=== PATIENT | male | born 1995 | race Caucasian/White ===

== ENCOUNTER 2019-09-04 23:24 | Inpatient (IN) ==
[2019-09-04] MEDS ORDERED: LACTATED RINGERS 1,000 ML IV STA (23:28)
[2019-09-04] MEDS ORDERED: ONDANSETRON 4 MG/2 ML VIAL IV STA (23:28)
[2019-09-04] MEDS ORDERED: HYDROmorphone 2 MG/1 ML VIAL IV STA (23:28)
[2019-09-04 23:42] LABS: Basophils % 0.5 % (0.0-0.8); Eosinophils # 0.1 10*3/uL (0.0-0.87); Hematocrit 43.5 VOL% (42.0-52.0); Hemoglobin 14.7 GM/DL (14.0-18.0); Immature Granulocytes % 0.2 %; Immature Granulocytes Absolute 0.02 #; Lymphocytes # 2.4 10*3/uL (1.4-4.0); Lymphocytes % 28.9 % (21.2-54.2); Mean Corpuscular HGB Conc 33.8 GM/DL (32-36); Mean Corpuscular Volume 88.8 FL (87-102); Mean Platelet Volume 10.8 FL (9.6-12.0); Monocytes % 8.8 % (1.7-12.7); Neutrophils % 60.6 % (38.7-73.9); Platelet Count 246 T/CUMM (130-400); Red Cell Distribution Width 12.9 % (9.3-17.3); White Blood Count 8.3 T/CUMM (4-12)
[2019-09-04 23:50] LABS: INR 1.1; PT Patient Result 12.1 SECS (9.6-12.2); Partial Thromboplastin Time 23.3 SECS (20.8-36.0)
[2019-09-04] MEDS ORDERED: AMPICILLIN/SULBACTAM 3,000 MG in SODIUM CHLORIDE 0.9% 100 ML IV STA (23:55)
[2019-09-05 00:02] LABS: Alanine Aminotransferase 18 U/L (16-61); Albumin 4.7 G/DL (3.4-5.0); Alkaline Phosphatase 72 U/L (45-117); Amylase 30 U/L (25-115); Aspartate Amino Transferase 24 U/L (0-37); Blood Urea Nitrogen 8 MG/DL (7-18); Calcium 9.1 MG/DL (8.5-10.1); Estimated Glom Filtration Rate 87 ML/MIN; Glucose 115 MG/DL (74-106); Osmolality,Calculated 277.4 MOS/KG (273-304); Total Protein 7.7 G/DL (6.4-8.3)
[2019-09-05 00:28] LABS: Barbiturates Screen,Urine Negative (Negative); Benzodiazepines Screen,Urine Negative (Negative); Cannabinoid Screen,Urine Positive (Negative); Opiate Screen,Urine Negative (Negative); Phencyclidine Screen,Urine Negative (Negative)
[2019-09-05 00:31] LABS: Apearance,Urine CLEAR (Clear); Bilirubin,Urine Negative (Negative); Blood, Urine Negative (Negative); Glucose,Urine (UA) Negative (Negative); Granular Casts,Urine 9 /LPF (0-1); Hyaline Casts,Urine 9 /LPF (0-3); Ketones,Urine 5 mg/dL (Negative); Mucus,Urine Occasional /LPF (Occasional); Nitrite,Urine Negative (Negative); Protein,Urine 30 MG/DL; RBC,Urine 4 /HPF (0-4); Urine Color Yellow (Yellow); Urine Specific Gravity 1.026 (1.001-1.035); WBC,Urine 2 /HPF (0-6)
[2019-09-05] MEDS ORDERED: SODIUM CHLORIDE 0.9% 1,000 ML IV PRN (01:22)
[2019-09-05] MEDS ORDERED: ONDANSETRON 4 MG/2 ML VIAL IV PRN (01:25)
[2019-09-05] MEDS ORDERED: HYDROmorphone 2 MG/1 ML VIAL IV PRN (01:25)
[2019-09-05] MEDS ORDERED: KETAMINE 500 MG/10 ML VIAL ONE (01:28)
[2019-09-05] MEDS ORDERED: DESFLURANE 1 UNIT/15 MINUTE INH ONE (01:28)
[2019-09-05] MEDS ORDERED: LIDOCAINE 2% 5 ML VIAL ONE (01:28)
[2019-09-05] MEDS ORDERED: PROPOFOL 200 MG/20 ML VIAL IV ONE (01:28)
[2019-09-05] MEDS ORDERED: ROCURONIUM 100 MG/10 ML VIAL IV ONE (01:29)
[2019-09-05] MEDS ORDERED: GLYCOPYRROLATE 0.4 MG/2 ML VIAL ONE (01:29)
[2019-09-05] MEDS ORDERED: SUCCINYLCHOLINE 200 MG/10 ML VIAL ONE (01:29)
[2019-09-05] MEDS ORDERED: SODIUM CHLORIDE 0.9% 1,000 ML IV ONE (01:29)
[2019-09-05] MEDS ORDERED: PHENYLEPHRINE 1 MG/10 ML SYRINGE IV ONE (01:29)
[2019-09-05] MEDS ORDERED: NEOSTIGMINE 10 MG/10 ML VIAL ONE (01:29)
[2019-09-05] MEDS: LACTATED RINGERS 1,000 ML IV SCH ×3 (01:34→17:39)
[2019-09-05] MEDS: KETOROLAC 30 MG/1 ML VIAL IV SCH ×4 (01:52→23:01)
[2019-09-05] MEDS: HYDROmorphone 2 MG/1 ML VIAL IV PRN (05:35)
[2019-09-05 06:02] LABS: Basophils % 0.2 % (0.0-0.8); Eosinophils % 0.1 % (0.00-10.9); Hematocrit 37.9 VOL% (42.0-52.0); Hemoglobin 12.7 GM/DL (14.0-18.0); Immature Granulocytes % 0.2 %; Immature Granulocytes Absolute 0.02 #; Lymphocytes # 1.1 10*3/uL (1.4-4.0); Lymphocytes % 9.3 % (21.2-54.2); Mean Corpuscular HGB Conc 33.5 GM/DL (32-36); Mean Corpuscular Volume 91.3 FL (87-102); Mean Platelet Volume 10.8 FL (9.6-12.0); Monocytes % 8.5 % (1.7-12.7); Neutrophils % 81.7 % (38.7-73.9); Platelet Count 208 T/CUMM (130-400); Red Blood Count 4.15 MC/CUMM (3.8-5.5); Red Cell Distribution Width 12.9 % (9.3-17.3); White Blood Count 12.1 T/CUMM (4-12)
[2019-09-05 06:38] LABS: Band Neutrophils 6 % (0-10); Lymphocytes 9 % (20-55); Platelet Estimate Normal; Segmented Neutrophils 80 % (50-85); Total Cells Counted 100
[2019-09-05 06:39] LABS: Hypochromasia Slight
[2019-09-05] MEDS ORDERED: LACTATED RINGERS 1,000 ML IV ONE ×2 (07:03→09:42)
[2019-09-05] MEDS ORDERED: INFLUENZA VIRUS VACCINE 0.5 ML SYRINGE IM ONE (07:29)
[2019-09-05] MEDS: ENOXAPARIN 40 MG/0.4 ML SYRINGE SUBCUT SCH (23:01)
[2019-09-06] MEDS: KETOROLAC 30 MG/1 ML VIAL IV SCH ×4 (03:59→21:33)
[2019-09-06] MEDS: LACTATED RINGERS 1,000 ML IV SCH ×3 (04:00→17:30)
[2019-09-06] MEDS ORDERED: LACTATED RINGERS 1,000 ML IV ONE (07:33)
[2019-09-06 08:16] LABS: Basophils % 0.2 % (0.0-0.8); Eosinophils # 0.1 10*3/uL (0.0-0.87); Eosinophils % 0.7 % (0.00-10.9); Hematocrit 27.4 VOL% (42.0-52.0); Immature Granulocytes % 0.6 %; Immature Granulocytes Absolute 0.06 #; Lymphocytes # 1.1 10*3/uL (1.4-4.0); Lymphocytes % 10.5 % (21.2-54.2); Mean Corpuscular HGB Conc 33.2 GM/DL (32-36); Mean Corpuscular Volume 93.2 FL (87-102); Monocytes % 6.7 % (1.7-12.7); Neutrophils % 81.3 % (38.7-73.9); Red Cell Distribution Width 13.3 % (9.3-17.3); White Blood Count 10.7 T/CUMM (4-12)
[2019-09-06 08:26] LABS: Calcium 7.6 MG/DL (8.5-10.1); Osmolality,Calculated 278.5 MOS/KG (273-304)
[2019-09-06 08:47] LABS: Hemoglobin 9.1 GM/DL (14.0-18.0); Platelet Count 156 T/CUMM (130-400); Red Blood Count 2.94 MC/CUMM (3.8-5.5)
[2019-09-06 08:51] LABS: Band Neutrophils 3 % (0-10); Eosinophils 1 % (0-10); Lymphocytes 12 % (20-55); Segmented Neutrophils 79 % (50-85); Total Cells Counted 100
[2019-09-06 08:52] LABS: Hypochromasia 1+; Microcytosis Slight; Platelet Estimate Adequate
[2019-09-06] MEDS: HYDROmorphone 2 MG/1 ML VIAL IV PRN (15:46)
[2019-09-06] MEDS: ENOXAPARIN 40 MG/0.4 ML SYRINGE SUBCUT SCH (21:32)
[2019-09-07] MEDS: HYDROmorphone 2 MG/1 ML VIAL IV PRN (00:33)
[2019-09-07] MEDS: KETOROLAC 30 MG/1 ML VIAL IV SCH ×4 (02:49→19:54)
[2019-09-07 06:13] LABS: Basophils % 0.2 % (0.0-0.8); Eosinophils # 0.2 10*3/uL (0.0-0.87); Eosinophils % 2.1 % (0.00-10.9); Hematocrit 25.9 VOL% (42.0-52.0); Hemoglobin 8.6 GM/DL (14.0-18.0); Immature Granulocytes % 0.9 %; Immature Granulocytes Absolute 0.09 #; Lymphocytes # 1.3 10*3/uL (1.4-4.0); Lymphocytes % 13.6 % (21.2-54.2); Mean Corpuscular HGB Conc 33.2 GM/DL (32-36); Mean Corpuscular Volume 91.8 FL (87-102); Mean Platelet Volume 11.3 FL (9.6-12.0); Monocytes % 5.5 % (1.7-12.7); Neutrophils % 77.7 % (38.7-73.9); Platelet Count 158 T/CUMM (130-400); Red Blood Count 2.82 MC/CUMM (3.8-5.5); White Blood Count 9.7 T/CUMM (4-12)
[2019-09-07 06:36] LABS: Osmolality,Calculated 281.3 MOS/KG (273-304)
[2019-09-07 06:42] LABS: Hypochromasia 1+; Microcytosis 1+
[2019-09-07 06:43] LABS: Ovalocytes Slight
[2019-09-07 06:45] LABS: Platelet Estimate Adequate
[2019-09-07] MEDS: LACTATED RINGERS 1,000 ML IV SCH ×3 (12:38→22:12)
[2019-09-07] MEDS: cefOXitin 2,000 MG in SYRINGE 1 EACH IV SCH ×2 (15:30→18:17)
[2019-09-07] MEDS: ENOXAPARIN 40 MG/0.4 ML SYRINGE SUBCUT SCH (19:54)
[2019-09-08] MEDS: KETOROLAC 30 MG/1 ML VIAL IV SCH ×4 (01:19→20:42)
[2019-09-08] MEDS: HYDROmorphone 2 MG/1 ML VIAL IV PRN ×3 (04:38→20:39)
[2019-09-08] MEDS: LACTATED RINGERS 1,000 ML IV SCH ×4 (06:08→22:50)
[2019-09-08 06:13] LABS: Basophils % 0.1 % (0.0-0.8); Eosinophils # 0.2 10*3/uL (0.0-0.87); Eosinophils % 1.9 % (0.00-10.9); Hematocrit 25.2 VOL% (42.0-52.0); Hemoglobin 8.3 GM/DL (14.0-18.0); Immature Granulocytes % 0.6 %; Immature Granulocytes Absolute 0.06 #; Lymphocytes # 0.7 10*3/uL (1.4-4.0); Lymphocytes % 6.8 % (21.2-54.2); Mean Corpuscular HGB Conc 32.9 GM/DL (32-36); Mean Corpuscular Volume 91.3 FL (87-102); Mean Platelet Volume 10.6 FL (9.6-12.0); Monocytes % 6.6 % (1.7-12.7); Platelet Count 195 T/CUMM (130-400); Red Blood Count 2.76 MC/CUMM (3.8-5.5); Red Cell Distribution Width 13.1 % (9.3-17.3); White Blood Count 9.7 T/CUMM (4-12)
[2019-09-08 06:33] LABS: Calcium 7.9 MG/DL (8.5-10.1); Osmolality,Calculated 276.7 MOS/KG (273-304)
[2019-09-08] MEDS: cefOXitin 2,000 MG in SYRINGE 1 EACH IV SCH ×3 (09:32→18:06)
[2019-09-08] MEDS: ENOXAPARIN 40 MG/0.4 ML SYRINGE SUBCUT SCH (20:41)
[2019-09-09] MEDS: HYDROmorphone 2 MG/1 ML VIAL IV PRN ×2 (01:19→06:23)
[2019-09-09] MEDS: KETOROLAC 30 MG/1 ML VIAL IV SCH ×4 (01:21→21:12)
[2019-09-09] MEDS: cefOXitin 2,000 MG in SYRINGE 1 EACH IV SCH ×3 (03:58→18:15)
[2019-09-09] MEDS: LACTATED RINGERS 1,000 ML IV SCH ×3 (06:31→22:43)
[2019-09-09] MEDS: ENOXAPARIN 40 MG/0.4 ML SYRINGE SUBCUT SCH (21:11)
[2019-09-10] MEDS: cefOXitin 2,000 MG in SYRINGE 1 EACH IV SCH ×3 (03:46→18:03)
[2019-09-10] MEDS: HYDROmorphone 2 MG/1 ML VIAL IV PRN ×5 (03:46→23:49)
[2019-09-10] MEDS: LACTATED RINGERS 1,000 ML IV SCH ×3 (06:46→23:48)
[2019-09-10] MEDS: ONDANSETRON 4 MG/2 ML VIAL IV PRN (12:16)
[2019-09-10] MEDS: ENOXAPARIN 40 MG/0.4 ML SYRINGE SUBCUT SCH (21:42)
[2019-09-11] MEDS: HYDROmorphone 2 MG/1 ML VIAL IV PRN ×6 (03:01→21:19)
[2019-09-11] MEDS: cefOXitin 2,000 MG in SYRINGE 1 EACH IV SCH ×3 (03:02→18:50)
[2019-09-11 06:22] LABS: Basophils % 0.3 % (0.0-0.8); Eosinophils # 0.2 10*3/uL (0.0-0.87); Eosinophils % 1.3 % (0.00-10.9); Hematocrit 30.7 VOL% (42.0-52.0); Hemoglobin 10.4 GM/DL (14.0-18.0); Immature Granulocytes Absolute 0.12 #; Lymphocytes # 0.9 10*3/uL (1.4-4.0); Lymphocytes % 7.6 % (21.2-54.2); Mean Corpuscular HGB Conc 33.9 GM/DL (32-36); Mean Corpuscular Volume 89.5 FL (87-102); Mean Platelet Volume 9.2 FL (9.6-12.0); Monocytes % 6.2 % (1.7-12.7); Neutrophils % 83.6 % (38.7-73.9); Platelet Count 335 T/CUMM (130-400); Red Blood Count 3.43 MC/CUMM (3.8-5.5); White Blood Count 11.9 T/CUMM (4-12)
[2019-09-11 06:53] LABS: Calcium 7.7 MG/DL (8.5-10.1); Osmolality,Calculated 266.2 MOS/KG (273-304)
[2019-09-11 06:55] LABS: Band Neutrophils 3 % (0-10); Eosinophils 1 % (0-10); Lymphocytes 10 % (20-55); Segmented Neutrophils 82 % (50-85); Total Cells Counted 100
[2019-09-11 06:56] LABS: Hypochromasia Slight; Microcytosis Slight; Platelet Estimate Normal
[2019-09-11] MEDS: LACTATED RINGERS 1,000 ML IV SCH ×3 (07:17→21:19)
[2019-09-11] MEDS: ENOXAPARIN 40 MG/0.4 ML SYRINGE SUBCUT SCH (21:19)
[2019-09-12] MEDS: HYDROmorphone 2 MG/1 ML VIAL IV PRN ×10 (00:49→22:44)
[2019-09-12] MEDS: cefOXitin 2,000 MG in SYRINGE 1 EACH IV SCH ×3 (03:50→22:40)
[2019-09-12] MEDS: ACETAMINOPHEN 325 MG TABLET PO PRN (04:06)
[2019-09-12] MEDS ORDERED: ceFAZolin 1,000 MG in SYRINGE 1 EACH IV ONE ×2 (06:56→07:30)
[2019-09-12] MEDS ORDERED: LACTATED RINGERS 1,000 ML IV ONE (07:01)
[2019-09-12] MEDS: LACTATED RINGERS 1,000 ML IV SCH (07:15)
[2019-09-12] MEDS ORDERED: LIDOCAINE 1%/EPI INJ 20 ML VIAL ONE (07:15)
[2019-09-12] MEDS ORDERED: BUPIVACAINE 0.5% 50 ML VIAL ONE (07:15)
[2019-09-12] MEDS ORDERED: ALBUMIN 5% 12.5 GM/250 ML VIAL IV ONE ×2 (08:30→10:22)
[2019-09-12] MEDS ORDERED: fentaNYL 100 MCG/2 ML VIAL ONE ×2 (10:22→10:24)
[2019-09-12] MEDS ORDERED: SEVOFLURANE 1 UNIT/15 MINUTE INH ONE (10:22)
[2019-09-12] MEDS ORDERED: PROPOFOL 200 MG/20 ML VIAL IV ONE (10:22)
[2019-09-12] MEDS ORDERED: LIDOCAINE 2% 5 ML VIAL ONE (10:22)
[2019-09-12] MEDS ORDERED: SUCCINYLCHOLINE 200 MG/10 ML VIAL ONE (10:23)
[2019-09-12] MEDS ORDERED: FUROSEMIDE 20 MG/2 ML VIAL ONE (10:23)
[2019-09-12] MEDS ORDERED: PHENYLEPHRINE 1 MG/10 ML SYRINGE IV ONE (10:23)
[2019-09-12] MEDS ORDERED: ROCURONIUM 100 MG/10 ML VIAL IV ONE (10:23)
[2019-09-12] MEDS ORDERED: MIDAZOLAM 2 MG/2 ML VIAL ONE (10:23)
[2019-09-12 10:46] LABS: Apearance,Urine CLEAR (Clear); Bacteria,Urine Occasional /HPF (Few); Bilirubin,Urine Negative (Negative); Blood, Urine Negative (Negative); Glucose,Urine (UA) Negative (Negative); Ketones,Urine 80 mg/dL (Negative); Mucus,Urine Occasional /LPF (Occasional); Nitrite,Urine Negative (Negative); Protein,Urine 30 MG/DL; RBC,Urine 7 /HPF (0-4); Urine Color Amber (Yellow); Urine Specific Gravity 1.041 (1.001-1.035); WBC,Urine 3 /HPF (0-6)
[2019-09-12] MEDS: DEXTROSE 5% LACTATED RINGERS 1,000 ML IV SCH ×2 (11:13→22:00)
[2019-09-12] MEDS: KETOROLAC 15 MG/1 ML VIAL IV SCH ×2 (15:20→20:00)
[2019-09-12] MEDS ORDERED: LACTATED RINGERS 2,000 ML IV ONE (19:03)
[2019-09-12] MEDS: ENOXAPARIN 40 MG/0.4 ML SYRINGE SUBCUT SCH (20:02)
[2019-09-13] MEDS: KETOROLAC 15 MG/1 ML VIAL IV SCH ×4 (02:12→19:47)
[2019-09-13] MEDS: HYDROmorphone 2 MG/1 ML VIAL IV PRN ×8 (02:16→21:00)
[2019-09-13] MEDS: DEXTROSE 5% LACTATED RINGERS 1,000 ML IV SCH ×4 (05:55→21:22)
[2019-09-13] MEDS: cefOXitin 2,000 MG in SYRINGE 1 EACH IV SCH ×3 (06:12→21:03)
[2019-09-13] MEDS: LACTATED RINGERS 1,000 ML IV SCH (11:18)
[2019-09-13] MEDS ORDERED: LACTATED RINGERS 1,000 ML IV ONE (12:03)
[2019-09-13] MEDS ORDERED: ALBUMIN 25% 25 GM in PREMIX 1 EACH IV ONE (12:03)
[2019-09-13] MEDS: ACETAMINOPHEN 325 MG TABLET PO PRN (13:27)
[2019-09-13] MEDS: ENOXAPARIN 40 MG/0.4 ML SYRINGE SUBCUT SCH (19:47)
[2019-09-14] MEDS: HYDROmorphone 2 MG/1 ML VIAL IV PRN ×9 (00:13→22:55)
[2019-09-14] MEDS: KETOROLAC 15 MG/1 ML VIAL IV SCH ×4 (01:04→19:36)
[2019-09-14] MEDS: DEXTROSE 5% LACTATED RINGERS 1,000 ML IV SCH ×4 (05:22→21:26)
[2019-09-14 05:42] LABS: Calcium 7.1 MG/DL (8.5-10.1); Osmolality,Calculated 274.5 MOS/KG (273-304)
[2019-09-14] MEDS: cefOXitin 2,000 MG in SYRINGE 1 EACH IV SCH ×3 (06:19→21:34)
[2019-09-14 07:44] LABS: Basophils # 0.1 10*3/uL (0.0-0.2); Basophils % 0.2 % (0.0-0.8); Eosinophils # 0.4 10*3/uL (0.0-0.87); Eosinophils % 1.7 % (0.00-10.9); Hematocrit 22.3 VOL% (42.0-52.0); Immature Granulocytes Absolute 0.44 #; Lymphocytes # 0.8 10*3/uL (1.4-4.0); Lymphocytes % 3.5 % (21.2-54.2); Mean Corpuscular HGB Conc 31.8 GM/DL (32-36); Mean Platelet Volume 9.2 FL (9.6-12.0); Monocytes % 7.5 % (1.7-12.7); Neutrophils % 85.1 % (38.7-73.9); Red Blood Count 2.45 MC/CUMM (3.8-5.5); Red Cell Distribution Width 14.3 % (9.3-17.3); White Blood Count 21.6 T/CUMM (4-12)
[2019-09-14 07:48] LABS: Hemoglobin 7.1 GM/DL (14.0-18.0); Platelet Count 459 T/CUMM (130-400)
[2019-09-14] MEDS ORDERED: LIDOCAINE 2% 5 ML VIAL ONE (08:32)
[2019-09-14] MEDS ORDERED: PROPOFOL 200 MG/20 ML VIAL IV ONE (08:32)
[2019-09-14] MEDS ORDERED: fentaNYL 100 MCG/2 ML VIAL ONE (08:32)
[2019-09-14] MEDS ORDERED: GLYCOPYRROLATE 0.4 MG/2 ML VIAL ONE (08:32)
[2019-09-14] MEDS ORDERED: PHENYLEPHRINE 1 MG/10 ML SYRINGE IV ONE (08:32)
[2019-09-14] MEDS ORDERED: DESFLURANE 1 UNIT/15 MINUTE INH ONE (08:32)
[2019-09-14] MEDS ORDERED: LACTATED RINGERS 1,000 ML IV ONE (08:33)
[2019-09-14] MEDS ORDERED: ROCURONIUM 100 MG/10 ML VIAL IV ONE (08:33)
[2019-09-14] MEDS ORDERED: NEOSTIGMINE 10 MG/10 ML VIAL ONE (08:33)
[2019-09-14 08:56] LABS: Lymphocytes 3 % (20-55); Segmented Neutrophils 90 % (50-85); Total Cells Counted 100
[2019-09-14 08:57] LABS: Platelet Estimate Normal
[2019-09-14 08:58] LABS: Anisocytosis Slight; Hypochromasia 1+; Microcytosis 1+; Ovalocytes Few
[2019-09-14 08:59] LABS: Target Cells Few
[2019-09-14] MEDS: ENOXAPARIN 40 MG/0.4 ML SYRINGE SUBCUT SCH (19:36)
[2019-09-14] MEDS ORDERED: SODIUM CHLORIDE 0.9% 1,000 ML IV PRN (19:53)
[2019-09-15] MEDS: HYDROmorphone 2 MG/1 ML VIAL IV PRN ×8 (01:03→21:18)
[2019-09-15] MEDS: KETOROLAC 15 MG/1 ML VIAL IV SCH ×4 (01:51→19:35)
[2019-09-15] MEDS: DEXTROSE 5% LACTATED RINGERS 1,000 ML IV SCH ×3 (04:00→19:37)
[2019-09-15 04:46] LABS: Basophils # 0.1 10*3/uL (0.0-0.2); Basophils % 0.3 % (0.0-0.8); Eosinophils # 0.4 10*3/uL (0.0-0.87); Hematocrit 27.6 VOL% (42.0-52.0); Hemoglobin 9.1 GM/DL (14.0-18.0); Immature Granulocytes % 3.4 %; Immature Granulocytes Absolute 0.67 #; Lymphocytes # 1.1 10*3/uL (1.4-4.0); Lymphocytes % 5.5 % (21.2-54.2); Mean Corpuscular Volume 89.6 FL (87-102); Mean Platelet Volume 8.9 FL (9.6-12.0); Monocytes % 10.2 % (1.7-12.7); Neutrophils % 78.6 % (38.7-73.9); Platelet Count 495 T/CUMM (130-400); Red Blood Count 3.08 MC/CUMM (3.8-5.5); Red Cell Distribution Width 14.6 % (9.3-17.3); White Blood Count 19.5 T/CUMM (4-12)
[2019-09-15 05:01] LABS: Calcium 7.3 MG/DL (8.5-10.1)
[2019-09-15 05:16] LABS: Band Neutrophils 2 % (0-10); Eosinophils 3 % (0-10); Hypochromasia 1+; Lymphocytes 5 % (20-55); Microcytosis 1+; Segmented Neutrophils 84 % (50-85); Total Cells Counted 100
[2019-09-15 05:17] LABS: Target Cells Slight
[2019-09-15] MEDS: cefOXitin 2,000 MG in SYRINGE 1 EACH IV SCH ×3 (05:20→21:21)
[2019-09-15] MEDS: NYSTATIN 500,000 UNIT/5 ML UDCUP PO SCH ×3 (12:30→21:22)
[2019-09-15] MEDS: ENOXAPARIN 40 MG/0.4 ML SYRINGE SUBCUT SCH (19:37)
[2019-09-16] MEDS: HYDROmorphone 2 MG/1 ML VIAL IV PRN ×7 (00:13→22:57)
[2019-09-16] MEDS: KETOROLAC 15 MG/1 ML VIAL IV SCH ×4 (01:54→19:52)
[2019-09-16] MEDS: DEXTROSE 5% LACTATED RINGERS 1,000 ML IV SCH ×3 (02:59→18:30)
[2019-09-16 04:54] LABS: Basophils # 0.1 10*3/uL (0.0-0.2); Basophils % 0.4 % (0.0-0.8); Eosinophils # 0.4 10*3/uL (0.0-0.87); Eosinophils % 2.3 % (0.00-10.9); Hematocrit 27.4 VOL% (42.0-52.0); Immature Granulocytes % 4.8 %; Immature Granulocytes Absolute 0.87 #; Lymphocytes # 1.2 10*3/uL (1.4-4.0); Lymphocytes % 6.8 % (21.2-54.2); Mean Corpuscular HGB Conc 32.8 GM/DL (32-36); Mean Corpuscular Volume 88.7 FL (87-102); Mean Platelet Volume 8.8 FL (9.6-12.0); Monocytes % 13.1 % (1.7-12.7); Neutrophils % 72.6 % (38.7-73.9); Platelet Count 560 T/CUMM (130-400); Red Blood Count 3.09 MC/CUMM (3.8-5.5); Red Cell Distribution Width 14.7 % (9.3-17.3); White Blood Count 18.1 T/CUMM (4-12)
[2019-09-16 05:09] LABS: Calcium 7.2 MG/DL (8.5-10.1); Osmolality,Calculated 269.1 MOS/KG (273-304)
[2019-09-16 05:34] LABS: Eosinophils 2 % (0-10); Lymphocytes 11 % (20-55); Segmented Neutrophils 82 % (50-85); Total Cells Counted 100
[2019-09-16] MEDS: cefOXitin 2,000 MG in SYRINGE 1 EACH IV SCH ×3 (05:34→22:05)
[2019-09-16 05:38] LABS: Hypochromasia 1+; Microcytosis 1+; Platelet Estimate Increased; Polychromasia Few
[2019-09-16] MEDS ORDERED: LIDOCAINE 2% 5 ML VIAL ONE (08:58)
[2019-09-16] MEDS ORDERED: ONDANSETRON 4 MG/2 ML VIAL ONE (08:58)
[2019-09-16] MEDS ORDERED: SEVOFLURANE 1 UNIT/15 MINUTE INH ONE (08:58)
[2019-09-16] MEDS ORDERED: DEXAMETHASONE 4 MG/1 ML VIAL ONE (08:58)
[2019-09-16] MEDS ORDERED: fentaNYL 100 MCG/2 ML VIAL ONE (08:58)
[2019-09-16] MEDS ORDERED: KETOROLAC 30 MG/1 ML VIAL ONE (08:58)
[2019-09-16] MEDS ORDERED: MIDAZOLAM 2 MG/2 ML VIAL ONE (08:58)
[2019-09-16] MEDS ORDERED: PROPOFOL 200 MG/20 ML VIAL IV ONE (08:58)
[2019-09-16] MEDS ORDERED: GLYCOPYRROLATE 0.4 MG/2 ML VIAL ONE (08:59)
[2019-09-16] MEDS ORDERED: LACTATED RINGERS 1,000 ML IV ONE (08:59)
[2019-09-16] MEDS ORDERED: SUCCINYLCHOLINE 200 MG/10 ML VIAL ONE (08:59)
[2019-09-16] MEDS ORDERED: ROCURONIUM 100 MG/10 ML VIAL IV ONE (08:59)
[2019-09-16] MEDS ORDERED: NEOSTIGMINE 10 MG/10 ML VIAL ONE (08:59)
[2019-09-16] MEDS ORDERED: PHENYLEPHRINE 1 MG/10 ML SYRINGE IV ONE (08:59)
[2019-09-16] MEDS: NYSTATIN 500,000 UNIT/5 ML UDCUP PO SCH ×4 (10:03→22:05)
[2019-09-16] MEDS: ENOXAPARIN 40 MG/0.4 ML SYRINGE SUBCUT SCH (19:53)
[2019-09-17] MEDS: KETOROLAC 15 MG/1 ML VIAL IV SCH ×2 (01:44→08:00)
[2019-09-17] MEDS: HYDROmorphone 2 MG/1 ML VIAL IV PRN ×7 (01:44→21:28)
[2019-09-17] MEDS: DEXTROSE 5% LACTATED RINGERS 1,000 ML IV SCH ×3 (02:30→18:03)
[2019-09-17 04:29] LABS: Basophils # 0.1 10*3/uL (0.0-0.2); Basophils % 0.5 % (0.0-0.8); Eosinophils # 0.1 10*3/uL (0.0-0.87); Eosinophils % 0.5 % (0.00-10.9); Hematocrit 27.7 VOL% (42.0-52.0); Hemoglobin 9.3 GM/DL (14.0-18.0); Immature Granulocytes % 5.2 %; Immature Granulocytes Absolute 1.06 #; Lymphocytes # 1.3 10*3/uL (1.4-4.0); Lymphocytes % 6.3 % (21.2-54.2); Mean Corpuscular HGB Conc 33.6 GM/DL (32-36); Mean Corpuscular Volume 87.7 FL (87-102); Mean Platelet Volume 8.7 FL (9.6-12.0); Monocytes % 10.9 % (1.7-12.7); NRBC # 0.02 10*3/uL; Neutrophils % 76.6 % (38.7-73.9); Platelet Count 657 T/CUMM (130-400); Red Blood Count 3.16 MC/CUMM (3.8-5.5); Red Cell Distribution Width 14.2 % (9.3-17.3); White Blood Count 20.4 T/CUMM (4-12)
[2019-09-17 04:41] LABS: Calcium 7.1 MG/DL (8.5-10.1)
[2019-09-17 05:03] LABS: Band Neutrophils 4 % (0-10); Hypochromasia 1+; Lymphocytes 4 % (20-55); Segmented Neutrophils 85 % (50-85); Total Cells Counted 100
[2019-09-17 05:04] LABS: Microcytosis 1+; Target Cells Slight
[2019-09-17] MEDS: cefOXitin 2,000 MG in SYRINGE 1 EACH IV SCH ×3 (06:25→21:30)
[2019-09-17] MEDS: NYSTATIN 500,000 UNIT/5 ML UDCUP PO SCH ×4 (07:59→21:30)
[2019-09-18] MEDS: HYDROmorphone 2 MG/1 ML VIAL IV PRN ×13 (00:23→23:11)
[2019-09-18] MEDS: DEXTROSE 5% LACTATED RINGERS 1,000 ML IV SCH ×3 (02:42→18:47)
[2019-09-18 05:26] LABS: Basophils # 0.1 10*3/uL (0.0-0.2); Basophils % 0.2 % (0.0-0.8); Eosinophils # 0.3 10*3/uL (0.0-0.87); Eosinophils % 1.2 % (0.00-10.9); Hematocrit 30.5 VOL% (42.0-52.0); Immature Granulocytes % 8.1 %; Immature Granulocytes Absolute 1.78 #; Lymphocytes # 1.8 10*3/uL (1.4-4.0); Mean Corpuscular HGB Conc 32.8 GM/DL (32-36); Mean Corpuscular Volume 89.7 FL (87-102); Mean Platelet Volume 8.7 FL (9.6-12.0); Monocytes % 10.5 % (1.7-12.7); NRBC # 0.03 10*3/uL; Platelet Count 807 T/CUMM (130-400); Red Cell Distribution Width 14.5 % (9.3-17.3); White Blood Count 21.9 T/CUMM (4-12)
[2019-09-18 05:40] LABS: Calcium 7.4 MG/DL (8.5-10.1); Osmolality,Calculated 266.2 MOS/KG (273-304)
[2019-09-18 05:51] LABS: Band Neutrophils 2 % (0-10); Eosinophils 1 % (0-10); Hypochromasia 1+; Lymphocytes 6 % (20-55); Platelet Estimate Increased; Segmented Neutrophils 85 % (50-85); Total Cells Counted 100
[2019-09-18 05:52] LABS: Microcytosis 1+
[2019-09-18] MEDS: cefOXitin 2,000 MG in SYRINGE 1 EACH IV SCH (06:25)
[2019-09-18] MEDS: NYSTATIN 500,000 UNIT/5 ML UDCUP PO SCH ×4 (08:19→20:31)
[2019-09-18] MEDS ORDERED: ALBUMIN 5% 12.5 GM/250 ML VIAL IV ONE ×2 (09:57→09:58)
[2019-09-18] MEDS ORDERED: fentaNYL 100 MCG/2 ML VIAL ONE (11:03)
[2019-09-18] MEDS ORDERED: SEVOFLURANE 1 UNIT/15 MINUTE INH ONE (11:03)
[2019-09-18] MEDS ORDERED: LIDOCAINE 2% 5 ML VIAL ONE (11:03)
[2019-09-18] MEDS ORDERED: PROPOFOL 200 MG/20 ML VIAL IV ONE (11:03)
[2019-09-18] MEDS ORDERED: HYDROmorphone 2 MG/1 ML VIAL ONE (11:04)
[2019-09-18] MEDS ORDERED: MIDAZOLAM 2 MG/2 ML VIAL ONE (11:04)
[2019-09-18] MEDS ORDERED: ONDANSETRON 4 MG/2 ML VIAL ONE ×2 (11:04)
[2019-09-18] MEDS ORDERED: ROCURONIUM 100 MG/10 ML VIAL IV ONE (11:04)
[2019-09-18] MEDS ORDERED: SUCCINYLCHOLINE 200 MG/10 ML VIAL ONE (11:04)
[2019-09-18] MEDS ORDERED: ONDANSETRON 4 MG/2 ML VIAL IV PRN (11:08)
[2019-09-18] MEDS: PIPERACILLIN/TAZOBACTAM 3,375 MG in SODIUM CHLORIDE 0.9% 100 ML IV SCH ×2 (13:41→20:32)
[2019-09-19] MEDS: HYDROmorphone 2 MG/1 ML VIAL IV PRN ×6 (03:07→21:30)
[2019-09-19] MEDS: PIPERACILLIN/TAZOBACTAM 3,375 MG in SODIUM CHLORIDE 0.9% 100 ML IV SCH ×3 (04:35→21:31)
[2019-09-19] MEDS: DEXTROSE 5% LACTATED RINGERS 1,000 ML IV SCH ×2 (04:47→10:31)
[2019-09-19 05:27] LABS: Basophils % 0.2 % (0.0-0.8); Eosinophils # 0.2 10*3/uL (0.0-0.87); Eosinophils % 0.9 % (0.00-10.9); Hematocrit 30.7 VOL% (42.0-52.0); Immature Granulocytes % 9.4 %; Immature Granulocytes Absolute 2.42 #; Lymphocytes # 1.5 10*3/uL (1.4-4.0); Mean Corpuscular HGB Conc 32.6 GM/DL (32-36); Mean Corpuscular Volume 89.2 FL (87-102); Mean Platelet Volume 8.7 FL (9.6-12.0); Monocytes % 8.7 % (1.7-12.7); NRBC # 0.02 10*3/uL; Neutrophils % 74.8 % (38.7-73.9); Platelet Count 860 T/CUMM (130-400); Red Blood Count 3.44 MC/CUMM (3.8-5.5); White Blood Count 25.6 T/CUMM (4-12)
[2019-09-19 05:47] LABS: Band Neutrophils 3 % (0-10); Eosinophils 1 % (0-10); Lymphocytes 4 % (20-55); Platelet Estimate Increased; Segmented Neutrophils 86 % (50-85); Total Cells Counted 100
[2019-09-19 05:48] LABS: Hypochromasia 1+; Microcytosis Slight
[2019-09-19 05:54] LABS: Calcium 7.5 MG/DL (8.5-10.1); Osmolality,Calculated 268.1 MOS/KG (273-304)
[2019-09-19] MEDS: NYSTATIN 500,000 UNIT/5 ML UDCUP PO SCH ×4 (08:51→21:29)
[2019-09-19] MEDS ORDERED: DEXTROSE 50% 25 GM/50 ML VIAL IV PRN (09:49)
[2019-09-19] MEDS ORDERED: GLUCAGON 1 MG VIAL IM PRN (09:49)
[2019-09-19] MEDS: INSULIN REGULAR 100 UNIT/ML SUBCUT SCH ×2 (12:53→23:02)
[2019-09-19] MEDS: FAT EMULSION 20% 250 ML IV SCH (15:54)
[2019-09-19] MEDS ORDERED: DEXTROSE 10% 1,000 ML IV PRN (17:00)
[2019-09-19] MEDS ORDERED: ELECTROLYTE CONCENTRATE 20 ML, TRACE ELEMENTS (5) 1 ML, MULTIVITAMIN INJ 10 ML in AMINO... IV SCH (17:00)
[2019-09-20] MEDS: INSULIN REGULAR 100 UNIT/ML SUBCUT SCH ×4 (00:54→18:28)
[2019-09-20] MEDS: HYDROmorphone 2 MG/1 ML VIAL IV PRN ×11 (00:55→22:19)
[2019-09-20] MEDS: DEXTROSE 5% LACTATED RINGERS 1,000 ML IV SCH ×4 (00:56→19:36)
[2019-09-20] MEDS: PIPERACILLIN/TAZOBACTAM 3,375 MG in SODIUM CHLORIDE 0.9% 100 ML IV SCH ×2 (05:14→16:19)
[2019-09-20 05:44] LABS: Basophils # 0.1 10*3/uL (0.0-0.2); Basophils % 0.2 % (0.0-0.8); Eosinophils # 0.6 10*3/uL (0.0-0.87); Eosinophils % 2.4 % (0.00-10.9); Hematocrit 29.3 VOL% (42.0-52.0); Hemoglobin 9.6 GM/DL (14.0-18.0); Immature Granulocytes % 19.4 %; Immature Granulocytes Absolute 4.92 #; Lymphocytes % 7.8 % (21.2-54.2); Mean Corpuscular HGB Conc 32.8 GM/DL (32-36); Mean Corpuscular Volume 89.3 FL (87-102); Mean Platelet Volume 8.6 FL (9.6-12.0); Monocytes % 9.7 % (1.7-12.7); NRBC # 0.03 10*3/uL; Neutrophils % 60.5 % (38.7-73.9); Platelet Count 860 T/CUMM (130-400); Red Blood Count 3.28 MC/CUMM (3.8-5.5); Red Cell Distribution Width 13.9 % (9.3-17.3); White Blood Count 25.4 T/CUMM (4-12)
[2019-09-20 06:04] LABS: Calcium 7.4 MG/DL (8.5-10.1); Osmolality,Calculated 272.8 MOS/KG (273-304)
[2019-09-20 06:07] LABS: Prealbumin 9.7 MG/DL (20-40)
[2019-09-20 06:23] LABS: Eosinophils 1 % (0-10); Lymphocytes 13 % (20-55); Platelet Estimate Increased; Segmented Neutrophils 74 % (50-85); Total Cells Counted 100
[2019-09-20 06:25] LABS: Polychromasia Few
[2019-09-20] MEDS: NYSTATIN 500,000 UNIT/5 ML UDCUP PO SCH ×4 (09:38→20:10)
[2019-09-20] MEDS ORDERED: MINERAL OIL/PETROLATUM OPH OINT 3.5 GM TUBE ONE (12:37)
[2019-09-20] MEDS ORDERED: ONDANSETRON 4 MG/2 ML VIAL IV PRN (13:16)
[2019-09-20] MEDS ORDERED: ONDANSETRON 4 MG/2 ML VIAL ONE (13:17)
[2019-09-20] MEDS ORDERED: HYDROmorphone 2 MG/1 ML VIAL ONE (13:17)
[2019-09-20] MEDS: FAT EMULSION 20% 250 ML IV SCH (14:16)
[2019-09-20] MEDS: ELECTROLYTE CONCENTRATE 40 ML, TRACE ELEMENTS (5) 1 ML, MULTIVITAMIN INJ 10 ML in AMINO... IV SCH ×2 (14:20→18:04)
[2019-09-21] MEDS: HYDROmorphone 2 MG/1 ML VIAL IV PRN ×8 (00:32→23:03)
[2019-09-21] MEDS: PIPERACILLIN/TAZOBACTAM 3,375 MG in SODIUM CHLORIDE 0.9% 100 ML IV SCH ×3 (00:43→15:48)
[2019-09-21] MEDS: INSULIN REGULAR 100 UNIT/ML SUBCUT SCH ×4 (01:07→20:46)
[2019-09-21] MEDS: DEXTROSE 5% LACTATED RINGERS 1,000 ML IV SCH ×3 (03:05→20:45)
[2019-09-21 05:58] LABS: Basophils # 0.1 10*3/uL (0.0-0.2); Basophils % 0.3 % (0.0-0.8); Eosinophils # 0.9 10*3/uL (0.0-0.87); Eosinophils % 3.3 % (0.00-10.9); Hematocrit 31.8 VOL% (42.0-52.0); Hemoglobin 10.2 GM/DL (14.0-18.0); Immature Granulocytes % 19.1 %; Lymphocytes % 7.2 % (21.2-54.2); Mean Corpuscular HGB Conc 32.1 GM/DL (32-36); Mean Corpuscular Volume 90.3 FL (87-102); Mean Platelet Volume 8.4 FL (9.6-12.0); Monocytes % 9.1 % (1.7-12.7); NRBC # 0.02 10*3/uL; Platelet Count 895 T/CUMM (130-400); Red Blood Count 3.52 MC/CUMM (3.8-5.5); Red Cell Distribution Width 14.2 % (9.3-17.3); White Blood Count 28.3 T/CUMM (4-12)
[2019-09-21 06:17] LABS: Calcium 7.5 MG/DL (8.5-10.1); Osmolality,Calculated 273.8 MOS/KG (273-304)
[2019-09-21 06:21] LABS: Band Neutrophils 3 % (0-10); Eosinophils 3 % (0-10); Hypochromasia 1+; Lymphocytes 9 % (20-55); Platelet Estimate Increased; Segmented Neutrophils 77 % (50-85); Total Cells Counted 100
[2019-09-21 06:22] LABS: Microcytosis Slight
[2019-09-21] MEDS: NYSTATIN 500,000 UNIT/5 ML UDCUP PO SCH ×4 (08:53→23:02)
[2019-09-21] MEDS: FAT EMULSION 20% 250 ML IV SCH (13:19)
[2019-09-21] MEDS: ELECTROLYTE CONCENTRATE 40 ML, TRACE ELEMENTS (5) 1 ML, MULTIVITAMIN INJ 10 ML in AMINO... IV SCH (20:44)
[2019-09-22] MEDS: INSULIN REGULAR 100 UNIT/ML SUBCUT SCH ×4 (00:37→18:25)
[2019-09-22] MEDS: PIPERACILLIN/TAZOBACTAM 3,375 MG in SODIUM CHLORIDE 0.9% 100 ML IV SCH ×4 (00:37→23:49)
[2019-09-22] MEDS: ELECTROLYTE CONCENTRATE 40 ML, TRACE ELEMENTS (5) 1 ML, MULTIVITAMIN INJ 10 ML in AMINO... IV SCH ×2 (00:56→17:18)
[2019-09-22] MEDS: HYDROmorphone 2 MG/1 ML VIAL IV PRN ×12 (02:24→23:50)
[2019-09-22 04:46] LABS: Basophils # 0.1 10*3/uL (0.0-0.2); Basophils % 0.3 % (0.0-0.8); Eosinophils # 0.9 10*3/uL (0.0-0.87); Eosinophils % 3.4 % (0.00-10.9); Hemoglobin 9.8 GM/DL (14.0-18.0); Immature Granulocytes % 18.8 %; Immature Granulocytes Absolute 4.95 #; Lymphocytes % 7.5 % (21.2-54.2); Mean Corpuscular HGB Conc 31.6 GM/DL (32-36); Mean Corpuscular Volume 91.4 FL (87-102); Mean Platelet Volume 8.6 FL (9.6-12.0); Monocytes % 9.4 % (1.7-12.7); Neutrophils % 60.6 % (38.7-73.9); Platelet Count 818 T/CUMM (130-400); Red Blood Count 3.39 MC/CUMM (3.8-5.5); Red Cell Distribution Width 14.1 % (9.3-17.3); White Blood Count 26.4 T/CUMM (4-12)
[2019-09-22] MEDS: DEXTROSE 5% LACTATED RINGERS 1,000 ML IV SCH ×3 (04:52→23:51)
[2019-09-22 05:29] LABS: Albumin 1.8 G/DL (3.4-5.0); Bilirubin,Total 0.4 MG/DL (0.2-1.0); Calcium 7.9 MG/DL (8.5-10.1); Osmolality,Calculated 270.1 MOS/KG (273-304); Total Protein 5.6 G/DL (6.4-8.3)
[2019-09-22 06:04] LABS: Band Neutrophils 3 % (0-10); Eosinophils 2 % (0-10); Lymphocytes 9 % (20-55); Myelocytes 2 %; Segmented Neutrophils 74 % (50-85); Total Cells Counted 100
[2019-09-22 06:05] LABS: Anisocytosis 1+; Platelet Estimate Increased
[2019-09-22] MEDS: NYSTATIN 500,000 UNIT/5 ML UDCUP PO SCH ×4 (09:45→21:27)
[2019-09-22] MEDS ORDERED: ONDANSETRON 4 MG/2 ML VIAL IV PRN (11:58)
[2019-09-22] MEDS ORDERED: HYDROmorphone 2 MG/1 ML VIAL ONE (12:09)
[2019-09-22] MEDS ORDERED: ONDANSETRON 4 MG/2 ML VIAL ONE ×2 (12:09→12:48)
[2019-09-22] MEDS ORDERED: DESFLURANE 1 UNIT/15 MINUTE INH ONE (12:47)
[2019-09-22] MEDS ORDERED: LIDOCAINE 2% 5 ML VIAL ONE (12:47)
[2019-09-22] MEDS ORDERED: SUCCINYLCHOLINE 200 MG/10 ML VIAL ONE (12:48)
[2019-09-22] MEDS ORDERED: ROCURONIUM 100 MG/10 ML VIAL IV ONE (12:48)
[2019-09-22] MEDS ORDERED: PROPOFOL 200 MG/20 ML VIAL IV ONE (12:48)
[2019-09-22] MEDS ORDERED: DEXAMETHASONE 4 MG/1 ML VIAL ONE (12:48)
[2019-09-22] MEDS ORDERED: fentaNYL 100 MCG/2 ML VIAL ONE (12:48)
[2019-09-22] MEDS ORDERED: GLYCOPYRROLATE 0.4 MG/2 ML VIAL ONE (12:50)
[2019-09-22] MEDS ORDERED: NEOSTIGMINE 10 MG/10 ML VIAL ONE (12:50)
[2019-09-22] MEDS: FAT EMULSION 20% 250 ML IV SCH (14:50)
[2019-09-23] MEDS: INSULIN REGULAR 100 UNIT/ML SUBCUT SCH ×4 (00:10→18:35)
[2019-09-23] MEDS: HYDROmorphone 2 MG/1 ML VIAL IV PRN ×8 (02:19→22:24)
[2019-09-23] MEDS: DEXTROSE 5% LACTATED RINGERS 1,000 ML IV SCH ×4 (02:59→18:39)
[2019-09-23 05:09] LABS: Basophils # 0.3 10*3/uL (0.0-0.2); Basophils % 0.8 % (0.0-0.8); Eosinophils # 0.2 10*3/uL (0.0-0.87); Eosinophils % 0.4 % (0.00-10.9); Hematocrit 29.2 VOL% (42.0-52.0); Hemoglobin 9.5 GM/DL (14.0-18.0); Immature Granulocytes % 9.4 %; Immature Granulocytes Absolute 3.58 #; Lymphocytes # 2.2 10*3/uL (1.4-4.0); Lymphocytes % 5.7 % (21.2-54.2); Mean Corpuscular HGB Conc 32.5 GM/DL (32-36); Mean Corpuscular Volume 88.8 FL (87-102); Mean Platelet Volume 8.9 FL (9.6-12.0); Monocytes % 8.2 % (1.7-12.7); Neutrophils % 75.5 % (38.7-73.9); Platelet Count 778 T/CUMM (130-400); Red Blood Count 3.29 MC/CUMM (3.8-5.5); White Blood Count 38.2 T/CUMM (4-12)
[2019-09-23 05:30] LABS: Calcium 7.8 MG/DL (8.5-10.1); Osmolality,Calculated 267.5 MOS/KG (273-304)
[2019-09-23 05:48] LABS: Band Neutrophils 9 % (0-10); Lymphocytes 9 % (20-55); Metamyelocytes 1 %; Myelocytes 3 %; Platelet Estimate Increased; Segmented Neutrophils 68 % (50-85); Total Cells Counted 100
[2019-09-23 05:49] LABS: Anisocytosis 1+
[2019-09-23 05:50] LABS: Polychromasia Slight
[2019-09-23] MEDS: ELECTROLYTE CONCENTRATE 40 ML, TRACE ELEMENTS (5) 1 ML, MULTIVITAMIN INJ 10 ML in AMINO... IV SCH ×2 (06:26→17:27)
[2019-09-23] MEDS: PIPERACILLIN/TAZOBACTAM 3,375 MG in SODIUM CHLORIDE 0.9% 100 ML IV SCH ×2 (07:49→17:12)
[2019-09-23] MEDS: NYSTATIN 500,000 UNIT/5 ML UDCUP PO SCH ×6 (07:50→21:11)
[2019-09-23] MEDS: KETOROLAC 30 MG/1 ML VIAL IV SCH ×3 (07:56→20:32)
[2019-09-23] MEDS: ENOXAPARIN 40 MG/0.4 ML SYRINGE SUBCUT SCH (09:36)
[2019-09-23 11:03] LABS: Apearance,Urine CLEAR (Clear); Bilirubin,Urine Negative (Negative); Blood, Urine Moderate mg/dL (Negative); Glucose,Urine (UA) Negative (Negative); Ketones,Urine Negative (Negative); Nitrite,Urine Negative (Negative); Protein,Urine Negative; RBC,Urine 1 /HPF (0-4); Urine Color Yellow (Yellow); Urine Specific Gravity 1.008 (1.001-1.035); Urine Urobilinogen < 2.0 EU/DL (0.2-1.0); WBC,Urine 1 /HPF (0-6)
[2019-09-23] MEDS: FAT EMULSION 20% 250 ML IV SCH (14:38)
[2019-09-23] MEDS: LINEZOLID INJ 600 MG in PREMIX 1 EACH IV SCH (21:03)
[2019-09-24] MEDS: PIPERACILLIN/TAZOBACTAM 3,375 MG in SODIUM CHLORIDE 0.9% 100 ML IV SCH ×3 (00:48→16:36)
[2019-09-24] MEDS: HYDROmorphone 2 MG/1 ML VIAL IV PRN ×6 (00:54→20:40)
[2019-09-24] MEDS: INSULIN REGULAR 100 UNIT/ML SUBCUT SCH ×4 (02:04→18:05)
[2019-09-24] MEDS: KETOROLAC 30 MG/1 ML VIAL IV SCH ×4 (03:04→21:43)
[2019-09-24 05:44] LABS: Prealbumin 13.3 MG/DL (20-40)
[2019-09-24 06:51] LABS: Basophils # 0.1 10*3/uL (0.0-0.2); Basophils % 0.5 % (0.0-0.8); Eosinophils # 0.9 10*3/uL (0.0-0.87); Eosinophils % 3.4 % (0.00-10.9); Hematocrit 26.3 VOL% (42.0-52.0); Hemoglobin 8.5 GM/DL (14.0-18.0); Immature Granulocytes Absolute 1.52 #; Lymphocytes # 1.8 10*3/uL (1.4-4.0); Lymphocytes % 6.9 % (21.2-54.2); Mean Corpuscular HGB Conc 32.3 GM/DL (32-36); Mean Corpuscular Volume 90.7 FL (87-102); Mean Platelet Volume 8.9 FL (9.6-12.0); Monocytes % 8.2 % (1.7-12.7); Platelet Count 619 T/CUMM (130-400); White Blood Count 25.4 T/CUMM (4-12)
[2019-09-24 06:59] LABS: Calcium 7.8 MG/DL (8.5-10.1); Osmolality,Calculated 277.7 MOS/KG (273-304)
[2019-09-24 07:12] LABS: Eosinophils 3 % (0-10); Lymphocytes 7 % (20-55); Metamyelocytes 1 %; Myelocytes 2 %; Segmented Neutrophils 80 % (50-85); Total Cells Counted 100
[2019-09-24 07:13] LABS: Hypochromasia 1+; Microcytosis 1+
[2019-09-24] MEDS: ENOXAPARIN 40 MG/0.4 ML SYRINGE SUBCUT SCH (07:31)
[2019-09-24] MEDS: LINEZOLID INJ 600 MG in PREMIX 1 EACH IV SCH ×2 (09:45→21:38)
[2019-09-24] MEDS: NYSTATIN 500,000 UNIT/5 ML UDCUP PO SCH ×4 (09:45→21:37)
[2019-09-24] MEDS: FAT EMULSION 20% 250 ML IV SCH (14:43)
[2019-09-24] MEDS: DEXTROSE 5% LACTATED RINGERS 1,000 ML IV SCH ×2 (16:35→21:45)
[2019-09-24] MEDS: TRACE ELEMENTS IV SCH (16:51)
[2019-09-24] MEDS: MULTIVITAMIN IV SCH (16:51)
[2019-09-24] MEDS: ELECTROLYTE IV SCH (16:51)
[2019-09-24] MEDS: [UNRECOGNIZED DRUG - OTHER] IV SCH (16:51)
[2019-09-25] MEDS: PIPERACILLIN/TAZOBACTAM 3,375 MG in SODIUM CHLORIDE 0.9% 100 ML IV SCH ×3 (01:04→15:25)
[2019-09-25] MEDS: HYDROmorphone 2 MG/1 ML VIAL IV PRN ×7 (01:05→23:37)
[2019-09-25] MEDS: INSULIN REGULAR 100 UNIT/ML SUBCUT SCH ×4 (02:01→18:18)
[2019-09-25] MEDS: KETOROLAC 30 MG/1 ML VIAL IV SCH ×4 (03:04→22:30)
[2019-09-25 05:23] LABS: Basophils # 0.1 10*3/uL (0.0-0.2); Basophils % 0.7 % (0.0-0.8); Eosinophils # 0.6 10*3/uL (0.0-0.87); Eosinophils % 3.8 % (0.00-10.9); Hematocrit 25.7 VOL% (42.0-52.0); Hemoglobin 8.2 GM/DL (14.0-18.0); Immature Granulocytes % 5.4 %; Lymphocytes # 1.6 10*3/uL (1.4-4.0); Lymphocytes % 9.8 % (21.2-54.2); Mean Corpuscular HGB Conc 31.9 GM/DL (32-36); Mean Corpuscular Volume 88.9 FL (87-102); Mean Platelet Volume 8.5 FL (9.6-12.0); Monocytes % 8.4 % (1.7-12.7); Neutrophils % 71.9 % (38.7-73.9); Platelet Count 555 T/CUMM (130-400); Red Blood Count 2.89 MC/CUMM (3.8-5.5); Red Cell Distribution Width 13.8 % (9.3-17.3); White Blood Count 16.7 T/CUMM (4-12)
[2019-09-25 05:35] LABS: Calcium 7.8 MG/DL (8.5-10.1); Osmolality,Calculated 278.5 MOS/KG (273-304)
[2019-09-25 06:06] LABS: Band Neutrophils 2 % (0-10); Eosinophils 3 % (0-10); Lymphocytes 11 % (20-55); Platelet Estimate Increased; Segmented Neutrophils 82 % (50-85); Total Cells Counted 100
[2019-09-25 06:07] LABS: Anisocytosis 1+; Macrocytosis Slight
[2019-09-25] MEDS: DEXTROSE 5% LACTATED RINGERS 1,000 ML IV SCH ×2 (07:42→13:37)
[2019-09-25] MEDS: ENOXAPARIN 40 MG/0.4 ML SYRINGE SUBCUT SCH (08:17)
[2019-09-25] MEDS: NYSTATIN 500,000 UNIT/5 ML UDCUP PO SCH ×4 (08:17→21:37)
[2019-09-25] MEDS: LINEZOLID INJ 600 MG in PREMIX 1 EACH IV SCH ×2 (09:20→21:36)
[2019-09-25] MEDS: FAT EMULSION 20% 250 ML IV SCH (13:38)
[2019-09-25] MEDS: TRACE ELEMENTS IV SCH (17:12)
[2019-09-25] MEDS: ELECTROLYTE IV SCH (17:12)
[2019-09-25] MEDS: MULTIVITAMIN IV SCH (17:12)
[2019-09-25] MEDS: [UNRECOGNIZED DRUG - OTHER] IV SCH (17:12)
[2019-09-26] MEDS: PIPERACILLIN/TAZOBACTAM 3,375 MG in SODIUM CHLORIDE 0.9% 100 ML IV SCH ×3 (02:21→15:29)
[2019-09-26] MEDS: KETOROLAC 30 MG/1 ML VIAL IV SCH ×4 (02:23→20:20)
[2019-09-26] MEDS: INSULIN REGULAR 100 UNIT/ML SUBCUT SCH ×4 (02:48→18:07)
[2019-09-26] MEDS: HYDROmorphone 2 MG/1 ML VIAL IV PRN ×6 (03:18→22:08)
[2019-09-26] MEDS: DEXTROSE 5% LACTATED RINGERS 1,000 ML IV SCH ×3 (03:19→14:59)
[2019-09-26 05:44] LABS: Basophils # 0.1 10*3/uL (0.0-0.2); Basophils % 0.8 % (0.0-0.8); Eosinophils # 0.7 10*3/uL (0.0-0.87); Hematocrit 25.7 VOL% (42.0-52.0); Hemoglobin 8.1 GM/DL (14.0-18.0); Immature Granulocytes % 5.2 %; Immature Granulocytes Absolute 0.89 #; Lymphocytes # 1.8 10*3/uL (1.4-4.0); Lymphocytes % 10.2 % (21.2-54.2); Mean Corpuscular HGB Conc 31.5 GM/DL (32-36); Mean Corpuscular Volume 91.5 FL (87-102); Mean Platelet Volume 8.2 FL (9.6-12.0); Monocytes % 7.4 % (1.7-12.7); Neutrophils % 72.4 % (38.7-73.9); Platelet Count 499 T/CUMM (130-400); Red Blood Count 2.81 MC/CUMM (3.8-5.5); White Blood Count 17.1 T/CUMM (4-12)
[2019-09-26 06:09] LABS: Eosinophils 1 % (0-10); Hypochromasia 1+; Lymphocytes 8 % (20-55); Myelocytes 1 %; Segmented Neutrophils 83 % (50-85); Total Cells Counted 100
[2019-09-26 06:10] LABS: Microcytosis 1+
[2019-09-26 06:12] LABS: Calcium 8.1 MG/DL (8.5-10.1); Osmolality,Calculated 275.7 MOS/KG (273-304)
[2019-09-26] MEDS: ENOXAPARIN 40 MG/0.4 ML SYRINGE SUBCUT SCH (07:52)
[2019-09-26] MEDS: NYSTATIN 500,000 UNIT/5 ML UDCUP PO SCH ×4 (10:11→20:21)
[2019-09-26] MEDS: LINEZOLID INJ 600 MG in PREMIX 1 EACH IV SCH ×2 (10:12→22:09)
[2019-09-26] MEDS: FAT EMULSION 20% 250 ML IV SCH (13:51)
[2019-09-26] MEDS: TRACE ELEMENTS IV SCH (17:32)
[2019-09-26] MEDS: [UNRECOGNIZED DRUG - OTHER] IV SCH (17:32)
[2019-09-26] MEDS: ELECTROLYTE IV SCH (17:32)
[2019-09-26] MEDS: MULTIVITAMIN IV SCH (17:32)
[2019-09-26] MEDS: ACETAMINOPHEN 325 MG TABLET PO PRN (20:20)
[2019-09-27] MEDS: PIPERACILLIN/TAZOBACTAM 3,375 MG in SODIUM CHLORIDE 0.9% 100 ML IV SCH ×3 (00:04→15:24)
[2019-09-27] MEDS: KETOROLAC 30 MG/1 ML VIAL IV SCH ×4 (02:20→19:33)
[2019-09-27] MEDS: HYDROmorphone 2 MG/1 ML VIAL IV PRN ×8 (03:48→23:56)
[2019-09-27] MEDS: INSULIN REGULAR 100 UNIT/ML SUBCUT SCH ×4 (06:36→18:00)
[2019-09-27 06:38] LABS: Basophils # 0.2 10*3/uL (0.0-0.2); Basophils % 0.7 % (0.0-0.8); Eosinophils # 0.7 10*3/uL (0.0-0.87); Eosinophils % 3.3 % (0.00-10.9); Hematocrit 24.4 VOL% (42.0-52.0); Hemoglobin 7.7 GM/DL (14.0-18.0); Immature Granulocytes % 3.6 %; Immature Granulocytes Absolute 0.79 #; Lymphocytes # 1.6 10*3/uL (1.4-4.0); Lymphocytes % 7.3 % (21.2-54.2); Mean Corpuscular HGB Conc 31.6 GM/DL (32-36); Mean Corpuscular Volume 89.4 FL (87-102); Mean Platelet Volume 8.7 FL (9.6-12.0); Monocytes % 8.1 % (1.7-12.7); Platelet Count 474 T/CUMM (130-400); Red Blood Count 2.73 MC/CUMM (3.8-5.5); White Blood Count 22.2 T/CUMM (4-12)
[2019-09-27 07:00] LABS: Calcium 7.7 MG/DL (8.5-10.1); Osmolality,Calculated 281.3 MOS/KG (273-304)
[2019-09-27 07:03] LABS: Band Neutrophils 2 % (0-10); Eosinophils 2 % (0-10); Hypochromasia 1+; Lymphocytes 3 % (20-55); Microcytosis 1+; Platelet Estimate Increased; Segmented Neutrophils 89 % (50-85); Total Cells Counted 100
[2019-09-27] MEDS: DEXTROSE 5% LACTATED RINGERS 1,000 ML IV SCH ×5 (07:06→22:55)
[2019-09-27 07:09] LABS: Calcium 7.7 MG/DL (8.5-10.1); Osmolality,Calculated 280.4 MOS/KG (273-304)
[2019-09-27 07:23] LABS: Prealbumin 13.7 MG/DL (20-40)
[2019-09-27] MEDS: ENOXAPARIN 40 MG/0.4 ML SYRINGE SUBCUT SCH (08:46)
[2019-09-27] MEDS: NYSTATIN 500,000 UNIT/5 ML UDCUP PO SCH ×4 (08:46→20:41)
[2019-09-27] MEDS: ACETAMINOPHEN 325 MG TABLET PO PRN ×2 (08:46→23:57)
[2019-09-27] MEDS: PANTOPRAZOLE 40 MG VIAL IV SCH ×2 (09:48→20:43)
[2019-09-27] MEDS: LINEZOLID INJ 600 MG in PREMIX 1 EACH IV SCH (11:52)
[2019-09-27 11:54] LABS: Hematocrit 25.2 VOL% (42.0-52.0); Hemoglobin 8.1 GM/DL (14.0-18.0)
[2019-09-27] MEDS: FAT EMULSION 20% 250 ML IV SCH (13:31)
[2019-09-27] MEDS: MULTIVITAMIN IV SCH (17:14)
[2019-09-27] MEDS: [UNRECOGNIZED DRUG - OTHER] IV SCH (17:14)
[2019-09-27] MEDS: TRACE ELEMENTS IV SCH (17:14)
[2019-09-27] MEDS: ELECTROLYTE IV SCH (17:14)
[2019-09-28] MEDS: INSULIN REGULAR 100 UNIT/ML SUBCUT SCH ×4 (00:01→18:04)
[2019-09-28] MEDS: PIPERACILLIN/TAZOBACTAM 3,375 MG in SODIUM CHLORIDE 0.9% 100 ML IV SCH ×3 (00:59→15:59)
[2019-09-28] MEDS: KETOROLAC 30 MG/1 ML VIAL IV SCH (01:03)
[2019-09-28] MEDS: HYDROmorphone 2 MG/1 ML VIAL IV PRN ×9 (02:04→23:03)
[2019-09-28 05:31] LABS: Basophils # 0.1 10*3/uL (0.0-0.2); Basophils % 0.5 % (0.0-0.8); Eosinophils # 0.9 10*3/uL (0.0-0.87); Eosinophils % 4.6 % (0.00-10.9); Hematocrit 23.6 VOL% (42.0-52.0); Hemoglobin 7.5 GM/DL (14.0-18.0); Immature Granulocytes % 2.4 %; Immature Granulocytes Absolute 0.47 #; Lymphocytes # 1.8 10*3/uL (1.4-4.0); Lymphocytes % 9.3 % (21.2-54.2); Mean Corpuscular HGB Conc 31.8 GM/DL (32-36); Mean Corpuscular Volume 89.4 FL (87-102); Mean Platelet Volume 8.8 FL (9.6-12.0); Monocytes % 9.3 % (1.7-12.7); Neutrophils % 73.9 % (38.7-73.9); Platelet Count 400 T/CUMM (130-400); Red Blood Count 2.64 MC/CUMM (3.8-5.5); Red Cell Distribution Width 13.9 % (9.3-17.3); White Blood Count 19.6 T/CUMM (4-12)
[2019-09-28] MEDS: DEXTROSE 5% LACTATED RINGERS 1,000 ML IV SCH ×3 (06:13→23:07)
[2019-09-28] MEDS: NYSTATIN 500,000 UNIT/5 ML UDCUP PO SCH ×4 (08:39→20:22)
[2019-09-28] MEDS: ENOXAPARIN 40 MG/0.4 ML SYRINGE SUBCUT SCH (08:39)
[2019-09-28] MEDS: PANTOPRAZOLE 40 MG VIAL IV SCH ×2 (08:40→20:22)
[2019-09-28] MEDS: LINEZOLID INJ 600 MG in PREMIX 1 EACH IV SCH ×3 (10:48→22:54)
[2019-09-28] MEDS: FAT EMULSION 20% 250 ML IV SCH (13:25)
[2019-09-28] MEDS: ACETAMINOPHEN 325 MG TABLET PO PRN (17:00)
[2019-09-28] MEDS: [UNRECOGNIZED DRUG - OTHER] IV SCH (17:28)
[2019-09-28] MEDS: ELECTROLYTE IV SCH (17:28)
[2019-09-28] MEDS: TRACE ELEMENTS IV SCH (17:28)
[2019-09-28] MEDS: MULTIVITAMIN IV SCH (17:28)
[2019-09-29] MEDS: PIPERACILLIN/TAZOBACTAM 3,375 MG in SODIUM CHLORIDE 0.9% 100 ML IV SCH ×3 (00:05→16:20)
[2019-09-29] MEDS: ONDANSETRON 4 MG/2 ML VIAL IV PRN ×2 (00:05→21:17)
[2019-09-29] MEDS: INSULIN REGULAR 100 UNIT/ML SUBCUT SCH ×4 (00:55→17:48)
[2019-09-29] MEDS: HYDROmorphone 2 MG/1 ML VIAL IV PRN ×7 (03:20→22:54)
[2019-09-29 05:47] LABS: Basophils # 0.1 10*3/uL (0.0-0.2); Basophils % 0.3 % (0.0-0.8); Eosinophils # 0.5 10*3/uL (0.0-0.87); Eosinophils % 2.7 % (0.00-10.9); Hematocrit 24.1 VOL% (42.0-52.0); Hemoglobin 7.6 GM/DL (14.0-18.0); Immature Granulocytes % 1.9 %; Immature Granulocytes Absolute 0.37 #; Lymphocytes # 1.7 10*3/uL (1.4-4.0); Lymphocytes % 8.7 % (21.2-54.2); Mean Corpuscular HGB Conc 31.5 GM/DL (32-36); Mean Corpuscular Volume 89.3 FL (87-102); Mean Platelet Volume 8.7 FL (9.6-12.0); Monocytes % 8.6 % (1.7-12.7); Neutrophils % 77.8 % (38.7-73.9); Platelet Count 400 T/CUMM (130-400); White Blood Count 19.9 T/CUMM (4-12)
[2019-09-29 06:05] LABS: Calcium 7.9 MG/DL (8.5-10.1); Osmolality,Calculated 275.7 MOS/KG (273-304)
[2019-09-29] MEDS: NYSTATIN 500,000 UNIT/5 ML UDCUP PO SCH ×4 (09:33→21:10)
[2019-09-29] MEDS: PANTOPRAZOLE 40 MG VIAL IV SCH ×2 (09:33→21:10)
[2019-09-29] MEDS: ENOXAPARIN 40 MG/0.4 ML SYRINGE SUBCUT SCH (09:33)
[2019-09-29] MEDS: LINEZOLID INJ 600 MG in PREMIX 1 EACH IV SCH ×2 (11:50→22:54)
[2019-09-29] MEDS: DEXTROSE 5% LACTATED RINGERS 1,000 ML IV SCH ×2 (13:30→14:12)
[2019-09-29] MEDS: FAT EMULSION 20% 250 ML IV SCH (14:39)
[2019-09-29] MEDS: TRACE ELEMENTS IV SCH (16:21)
[2019-09-29] MEDS: MULTIVITAMIN IV SCH (16:21)
[2019-09-29] MEDS: [UNRECOGNIZED DRUG - OTHER] IV SCH (16:21)
[2019-09-29] MEDS: ELECTROLYTE IV SCH (16:21)
[2019-09-29] MEDS: ACETAMINOPHEN 325 MG TABLET PO PRN (17:45)
[2019-09-30] MEDS: PIPERACILLIN/TAZOBACTAM 3,375 MG in SODIUM CHLORIDE 0.9% 100 ML IV SCH ×3 (00:09→16:28)
[2019-09-30] MEDS: INSULIN REGULAR 100 UNIT/ML SUBCUT SCH ×4 (00:20→17:51)
[2019-09-30 01:44] LABS: Basophils # 0.1 10*3/uL (0.0-0.2); Basophils % 0.3 % (0.0-0.8); Eosinophils # 0.6 10*3/uL (0.0-0.87); Eosinophils % 2.8 % (0.00-10.9); Hematocrit 24.4 VOL% (42.0-52.0); Hemoglobin 7.9 GM/DL (14.0-18.0); Immature Granulocytes % 1.7 %; Immature Granulocytes Absolute 0.34 #; Lymphocytes # 1.9 10*3/uL (1.4-4.0); Lymphocytes % 9.3 % (21.2-54.2); Mean Corpuscular HGB Conc 32.4 GM/DL (32-36); Mean Corpuscular Volume 88.7 FL (87-102); Mean Platelet Volume 8.8 FL (9.6-12.0); Monocytes % 8.9 % (1.7-12.7); Platelet Count 398 T/CUMM (130-400); Red Blood Count 2.75 MC/CUMM (3.8-5.5); Red Cell Distribution Width 14.2 % (9.3-17.3); White Blood Count 20.4 T/CUMM (4-12)
[2019-09-30 03:29] LABS: Eosinophils 2 % (0-10); Lymphocytes 10 % (20-55); Metamyelocytes 1 %; Platelet Estimate Normal; Segmented Neutrophils 81 % (50-85); Total Cells Counted 100
[2019-09-30] MEDS: HYDROmorphone 2 MG/1 ML VIAL IV PRN ×6 (04:01→22:36)
[2019-09-30] MEDS: DEXTROSE 5% LACTATED RINGERS 1,000 ML IV SCH ×2 (04:21→06:29)
[2019-09-30 07:32] LABS: Calcium 8.1 MG/DL (8.5-10.1)
[2019-09-30] MEDS: ONDANSETRON 4 MG/2 ML VIAL IV PRN ×2 (08:46→17:20)
[2019-09-30] MEDS: ENOXAPARIN 40 MG/0.4 ML SYRINGE SUBCUT SCH (08:46)
[2019-09-30] MEDS: PANTOPRAZOLE 40 MG VIAL IV SCH ×2 (10:13→21:27)
[2019-09-30] MEDS: NYSTATIN 500,000 UNIT/5 ML UDCUP PO SCH ×4 (10:13→21:27)
[2019-09-30] MEDS: LINEZOLID INJ 600 MG in PREMIX 1 EACH IV SCH ×2 (11:36→22:37)
[2019-09-30] MEDS: FAT EMULSION 20% 250 ML IV SCH (14:05)
[2019-09-30] MEDS: ACETAMINOPHEN 325 MG TABLET PO PRN (16:30)
[2019-09-30] MEDS: ELECTROLYTE IV SCH (17:20)
[2019-09-30] MEDS: MULTIVITAMIN IV SCH (17:20)
[2019-09-30] MEDS: [UNRECOGNIZED DRUG - OTHER] IV SCH (17:20)
[2019-09-30] MEDS: TRACE ELEMENTS IV SCH (17:20)
[2019-10-01] MEDS: PIPERACILLIN/TAZOBACTAM 3,375 MG in SODIUM CHLORIDE 0.9% 100 ML IV SCH ×3 (00:07→17:49)
[2019-10-01] MEDS: INSULIN REGULAR 100 UNIT/ML SUBCUT SCH ×4 (00:25→17:50)
[2019-10-01] MEDS: HYDROmorphone 2 MG/1 ML VIAL IV PRN ×8 (00:58→21:59)
[2019-10-01] MEDS: DEXTROSE 5% LACTATED RINGERS 1,000 ML IV SCH ×4 (03:13→19:59)
[2019-10-01 05:03] LABS: Prealbumin 9.8 MG/DL (20-40)
[2019-10-01] MEDS: ACETAMINOPHEN 325 MG TABLET PO PRN (05:07)
[2019-10-01] MEDS: ENOXAPARIN 40 MG/0.4 ML SYRINGE SUBCUT SCH (08:17)
[2019-10-01] MEDS: PANTOPRAZOLE 40 MG VIAL IV SCH ×2 (08:55→21:57)
[2019-10-01] MEDS: NYSTATIN 500,000 UNIT/5 ML UDCUP PO SCH ×4 (09:00→21:57)
[2019-10-01 09:43] LABS: INR 1.2; PT Patient Result 13.2 SECS (9.6-12.2)
[2019-10-01] MEDS: LINEZOLID INJ 600 MG in PREMIX 1 EACH IV SCH (13:09)
[2019-10-01] MEDS ORDERED: MIDAZOLAM 2 MG/2 ML VIAL IV ONE (13:11)
[2019-10-01] MEDS ORDERED: fentaNYL 100 MCG/2 ML VIAL IV ONE (13:11)
[2019-10-01] MEDS ORDERED: DIAZEPAM 5 MG TABLET PO ONE (13:11)
[2019-10-01] MEDS: MICAFUNGIN 100 MG in SODIUM CHLORIDE 0.9% 100 ML IV SCH (15:19)
[2019-10-01] MEDS: FAT EMULSION 20% 250 ML IV SCH (15:20)
[2019-10-01] MEDS ORDERED: HYDROmorphone 2 MG/1 ML VIAL ONE (16:54)
[2019-10-01] MEDS: SODIUM CHLORIDE 0.45% 1,000 ML IV SCH (17:50)
[2019-10-01] MEDS: MULTIVITAMIN IV SCH (19:59)
[2019-10-01] MEDS: ELECTROLYTE IV SCH (19:59)
[2019-10-01] MEDS: TRACE ELEMENTS IV SCH (19:59)
[2019-10-01] MEDS: [UNRECOGNIZED DRUG - OTHER] IV SCH (19:59)
[2019-10-02] MEDS: PIPERACILLIN/TAZOBACTAM 3,375 MG in SODIUM CHLORIDE 0.9% 100 ML IV SCH ×4 (00:01→23:51)
[2019-10-02] MEDS: HYDROmorphone 2 MG/1 ML VIAL IV PRN ×10 (00:01→23:50)
[2019-10-02] MEDS: INSULIN REGULAR 100 UNIT/ML SUBCUT SCH ×4 (00:29→17:32)
[2019-10-02] MEDS: LINEZOLID INJ 600 MG in PREMIX 1 EACH IV SCH ×2 (01:04→13:47)
[2019-10-02] MEDS: DEXTROSE 5% LACTATED RINGERS 1,000 ML IV SCH ×3 (04:42→23:51)
[2019-10-02] MEDS: NYSTATIN 500,000 UNIT/5 ML UDCUP PO SCH ×4 (09:28→21:42)
[2019-10-02] MEDS: PANTOPRAZOLE 40 MG VIAL IV SCH ×2 (09:28→21:41)
[2019-10-02] MEDS: ENOXAPARIN 40 MG/0.4 ML SYRINGE SUBCUT SCH (12:08)
[2019-10-02] MEDS: FAT EMULSION 20% 250 ML IV SCH (14:59)
[2019-10-02] MEDS: MICAFUNGIN 100 MG in SODIUM CHLORIDE 0.9% 100 ML IV SCH (15:01)
[2019-10-02] MEDS: TRACE ELEMENTS (5) 1 ML, MULTIVITAMIN INJ 10 ML in AMINO ACIDS/DEXT/LYTES 5-15% 2,000 ML IV SCH (16:42)
[2019-10-02] MEDS: SODIUM CHLORIDE 0.45% 1,000 ML IV SCH (16:50)
[2019-10-03] MEDS: HYDROmorphone 2 MG/1 ML VIAL IV PRN ×10 (00:09→22:02)
[2019-10-03] MEDS: INSULIN REGULAR 100 UNIT/ML SUBCUT SCH ×4 (01:53→18:40)
[2019-10-03] MEDS: LINEZOLID INJ 600 MG in PREMIX 1 EACH IV SCH ×2 (01:56→13:18)
[2019-10-03] MEDS: TRACE ELEMENTS (5) 1 ML, MULTIVITAMIN INJ 10 ML in AMINO ACIDS/DEXT/LYTES 5-15% 2,000 ML IV SCH (04:20)
[2019-10-03] MEDS: DEXTROSE 5% LACTATED RINGERS 1,000 ML IV SCH ×3 (05:02→21:16)
[2019-10-03 07:50] LABS: Basophils # 0.1 10*3/uL (0.0-0.2); Basophils % 0.4 % (0.0-0.8); Eosinophils # 0.6 10*3/uL (0.0-0.87); Eosinophils % 4.9 % (0.00-10.9); Hematocrit 24.7 VOL% (42.0-52.0); Hemoglobin 7.8 GM/DL (14.0-18.0); Immature Granulocytes % 1.5 %; Lymphocytes # 1.3 10*3/uL (1.4-4.0); Lymphocytes % 9.9 % (21.2-54.2); Mean Corpuscular HGB Conc 31.6 GM/DL (32-36); Mean Corpuscular Volume 86.7 FL (87-102); Mean Platelet Volume 9.1 FL (9.6-12.0); Monocytes % 8.6 % (1.7-12.7); Neutrophils % 74.7 % (38.7-73.9); Platelet Count 468 T/CUMM (130-400); Red Blood Count 2.85 MC/CUMM (3.8-5.5); Red Cell Distribution Width 14.8 % (9.3-17.3)
[2019-10-03 07:59] LABS: Osmolality,Calculated 268.2 MOS/KG (273-304)
[2019-10-03] MEDS: PIPERACILLIN/TAZOBACTAM 3,375 MG in SODIUM CHLORIDE 0.9% 100 ML IV SCH ×2 (08:43→17:04)
[2019-10-03] MEDS: ENOXAPARIN 40 MG/0.4 ML SYRINGE SUBCUT SCH (08:43)
[2019-10-03] MEDS: PANTOPRAZOLE 40 MG VIAL IV SCH ×2 (08:45→21:16)
[2019-10-03] MEDS: NYSTATIN 500,000 UNIT/5 ML UDCUP PO SCH ×4 (08:48→21:16)
[2019-10-03] MEDS: FAT EMULSION 20% 250 ML IV SCH (14:21)
[2019-10-03] MEDS: MICAFUNGIN 100 MG in SODIUM CHLORIDE 0.9% 100 ML IV SCH (14:26)
[2019-10-03] MEDS: SODIUM CHLORIDE 0.45% 1,000 ML IV SCH (14:27)
[2019-10-03] MEDS: ONDANSETRON 4 MG/2 ML VIAL IV PRN (14:31)
[2019-10-04] MEDS: INSULIN REGULAR 100 UNIT/ML SUBCUT SCH ×4 (00:24→18:37)
[2019-10-04] MEDS: HYDROmorphone 2 MG/1 ML VIAL IV PRN ×8 (00:59→23:31)
[2019-10-04] MEDS: LINEZOLID INJ 600 MG in PREMIX 1 EACH IV SCH (01:00)
[2019-10-04] MEDS: TRACE ELEMENTS (5) 1 ML, MULTIVITAMIN INJ 10 ML in AMINO ACIDS/DEXT/LYTES 5-15% 2,000 ML IV SCH ×2 (02:29→22:59)
[2019-10-04] MEDS: PIPERACILLIN/TAZOBACTAM 3,375 MG in SODIUM CHLORIDE 0.9% 100 ML IV SCH ×2 (02:30→11:07)
[2019-10-04] MEDS: ONDANSETRON 4 MG/2 ML VIAL IV PRN (04:39)
[2019-10-04 05:37] LABS: Basophils # 0.1 10*3/uL (0.0-0.2); Basophils % 0.5 % (0.0-0.8); Eosinophils # 0.5 10*3/uL (0.0-0.87); Eosinophils % 3.8 % (0.00-10.9); Hematocrit 25.5 VOL% (42.0-52.0); Immature Granulocytes % 1.9 %; Immature Granulocytes Absolute 0.27 #; Lymphocytes # 1.5 10*3/uL (1.4-4.0); Lymphocytes % 10.1 % (21.2-54.2); Mean Corpuscular HGB Conc 31.4 GM/DL (32-36); Mean Corpuscular Volume 86.1 FL (87-102); Mean Platelet Volume 9.2 FL (9.6-12.0); Monocytes % 8.3 % (1.7-12.7); Neutrophils % 75.4 % (38.7-73.9); Platelet Count 556 T/CUMM (130-400); Red Blood Count 2.96 MC/CUMM (3.8-5.5); Red Cell Distribution Width 14.7 % (9.3-17.3); White Blood Count 14.4 T/CUMM (4-12)
[2019-10-04 05:46] LABS: Calcium 8.2 MG/DL (8.5-10.1)
[2019-10-04 05:54] LABS: Prealbumin 13.2 MG/DL (20-40)
[2019-10-04] MEDS: DEXTROSE 5% LACTATED RINGERS 1,000 ML IV SCH (07:45)
[2019-10-04] MEDS: ENOXAPARIN 40 MG/0.4 ML SYRINGE SUBCUT SCH (08:22)
[2019-10-04] MEDS: PANTOPRAZOLE 40 MG VIAL IV SCH ×2 (08:23→20:46)
[2019-10-04] MEDS: NYSTATIN 500,000 UNIT/5 ML UDCUP PO SCH (08:23)
[2019-10-04] MEDS: cefTRIAXone 2,000 MG in SYRINGE 1 EACH IV SCH (12:24)
[2019-10-04] MEDS: FAT EMULSION 20% 250 ML IV SCH (15:05)
[2019-10-04] MEDS: MICAFUNGIN 100 MG in SODIUM CHLORIDE 0.9% 100 ML IV SCH (15:05)
[2019-10-05] MEDS: INSULIN REGULAR 100 UNIT/ML SUBCUT SCH ×4 (00:41→17:42)
[2019-10-05] MEDS: HYDROmorphone 2 MG/1 ML VIAL IV PRN ×8 (02:46→21:47)
[2019-10-05 05:22] LABS: Basophils # 0.1 10*3/uL (0.0-0.2); Basophils % 0.7 % (0.0-0.8); Eosinophils # 0.8 10*3/uL (0.0-0.87); Eosinophils % 5.7 % (0.00-10.9); Hematocrit 26.5 VOL% (42.0-52.0); Hemoglobin 8.3 GM/DL (14.0-18.0); Immature Granulocytes % 2.9 %; Immature Granulocytes Absolute 0.38 #; Lymphocytes # 1.8 10*3/uL (1.4-4.0); Lymphocytes % 13.6 % (21.2-54.2); Mean Corpuscular HGB Conc 31.3 GM/DL (32-36); Mean Corpuscular Volume 87.5 FL (87-102); Mean Platelet Volume 9.3 FL (9.6-12.0); Monocytes % 8.7 % (1.7-12.7); Neutrophils % 68.4 % (38.7-73.9); Platelet Count 563 T/CUMM (130-400); Red Blood Count 3.03 MC/CUMM (3.8-5.5); White Blood Count 13.2 T/CUMM (4-12)
[2019-10-05 05:51] LABS: Calcium 8.8 MG/DL (8.5-10.1); Osmolality,Calculated 269.2 MOS/KG (273-304)
[2019-10-05] MEDS: cefTRIAXone 2,000 MG in SYRINGE 1 EACH IV SCH (09:32)
[2019-10-05] MEDS: ENOXAPARIN 40 MG/0.4 ML SYRINGE SUBCUT SCH (09:32)
[2019-10-05] MEDS: PANTOPRAZOLE 40 MG VIAL IV SCH ×2 (09:33→21:45)
[2019-10-05] MEDS: MICAFUNGIN 100 MG in SODIUM CHLORIDE 0.9% 100 ML IV SCH (13:32)
[2019-10-05] MEDS: FAT EMULSION 20% 250 ML IV SCH (13:32)
[2019-10-05] MEDS: ONDANSETRON 4 MG/2 ML VIAL IV PRN (15:49)
[2019-10-05] MEDS: TRACE ELEMENTS (5) 1 ML, MULTIVITAMIN INJ 10 ML in AMINO ACIDS/DEXT/LYTES 5-15% 2,000 ML IV SCH (19:22)
[2019-10-06] MEDS: INSULIN REGULAR 100 UNIT/ML SUBCUT SCH ×3 (00:16→12:19)
[2019-10-06] MEDS: HYDROmorphone 2 MG/1 ML VIAL IV PRN ×10 (00:17→23:23)
[2019-10-06] MEDS: ENOXAPARIN 40 MG/0.4 ML SYRINGE SUBCUT SCH (09:07)
[2019-10-06] MEDS: PANTOPRAZOLE 40 MG VIAL IV SCH ×2 (09:07→20:40)
[2019-10-06] MEDS: cefTRIAXone 2,000 MG in SYRINGE 1 EACH IV SCH (09:07)
[2019-10-06] MEDS: MICAFUNGIN 100 MG in SODIUM CHLORIDE 0.9% 100 ML IV SCH (13:16)
[2019-10-07] MEDS: HYDROmorphone 2 MG/1 ML VIAL IV PRN ×9 (01:37→22:30)
[2019-10-07] MEDS: cefTRIAXone 2,000 MG in SYRINGE 1 EACH IV SCH (09:03)
[2019-10-07] MEDS: PANTOPRAZOLE 40 MG VIAL IV SCH ×2 (09:03→20:52)
[2019-10-07] MEDS: ENOXAPARIN 40 MG/0.4 ML SYRINGE SUBCUT SCH (09:04)
[2019-10-08] MEDS: HYDROmorphone 2 MG/1 ML VIAL IV PRN ×3 (02:55→09:19)
[2019-10-08 05:29] LABS: Basophils # 0.1 10*3/uL (0.0-0.2); Eosinophils # 0.5 10*3/uL (0.0-0.87); Eosinophils % 5.8 % (0.00-10.9); Hematocrit 29.1 VOL% (42.0-52.0); Hemoglobin 8.9 GM/DL (14.0-18.0); Immature Granulocytes % 4.2 %; Immature Granulocytes Absolute 0.39 #; Lymphocytes # 2.5 10*3/uL (1.4-4.0); Lymphocytes % 26.9 % (21.2-54.2); Mean Corpuscular HGB Conc 30.6 GM/DL (32-36); Mean Corpuscular Volume 87.1 FL (87-102); Mean Platelet Volume 8.9 FL (9.6-12.0); Monocytes % 9.6 % (1.7-12.7); Neutrophils % 52.5 % (38.7-73.9); Platelet Count 686 T/CUMM (130-400); Red Blood Count 3.34 MC/CUMM (3.8-5.5); Red Cell Distribution Width 14.7 % (9.3-17.3); White Blood Count 9.3 T/CUMM (4-12)
[2019-10-08 05:51] LABS: Calcium 9.2 MG/DL (8.5-10.1); Osmolality,Calculated 273.8 MOS/KG (273-304)
[2019-10-08] MEDS: cefTRIAXone 2,000 MG in SYRINGE 1 EACH IV SCH (09:20)
[2019-10-08] MEDS: PANTOPRAZOLE 40 MG VIAL IV SCH (09:20)
[2019-10-08] MEDS: ENOXAPARIN 40 MG/0.4 ML SYRINGE SUBCUT SCH (09:21)
[2019-10-08] MEDS ORDERED: SODIUM HYPOCHLORITE 0.25% IRRIG 473 ML BOTTLE TOP SCH (10:00)
[2019-10-08 11:33] VITALS: BP 120/71
== END 2019-10-08 14:11 | disposition home health service (06) | DRG 326 ==
LOC: EDUNIT# → EDBD → N.ED 23:24 → N.EDINP 09-05 01:09 → N.ICU 09-05 01:15 → N.3W 09-05 19:18 → N.CC 09-12 10:08 → N.3W 09-17 11:09 → N.TELES 09-21 17:48 → N.3W 09-22 13:25 → N.3E 10-02 18:57
PROVIDERS: ADMIT Surgery; ATTEND Surgery

== ENCOUNTER 2019-10-13 01:34 | Inpatient (IN) ==
[2019-10-13] MEDS ORDERED: PANTOPRAZOLE 40 MG VIAL IV STA (03:39)
[2019-10-13] MEDS ORDERED: ONDANSETRON 4 MG/2 ML VIAL IV STA ×2 (03:39→06:12)
[2019-10-13] MEDS ORDERED: MORPHINE 4 MG/1 ML VIAL IV STA (03:39)
[2019-10-13] MEDS ORDERED: SODIUM CHLORIDE 0.9% 1,000 ML IV STA ×2 (03:39→04:45)
[2019-10-13 04:08] LABS: Basophils # 0.1 10*3/uL (0.0-0.2); Basophils % 0.6 % (0.0-0.8); Eosinophils # 0.4 10*3/uL (0.0-0.87); Eosinophils % 2.8 % (0.00-10.9); Hematocrit 34.1 VOL% (42.0-52.0); Hemoglobin 10.5 GM/DL (14.0-18.0); Immature Granulocytes % 0.6 %; Immature Granulocytes Absolute 0.09 #; Lymphocytes # 2.6 10*3/uL (1.4-4.0); Lymphocytes % 18.2 % (21.2-54.2); Mean Corpuscular HGB Conc 30.8 GM/DL (32-36); Mean Platelet Volume 8.6 FL (9.6-12.0); Monocytes % 5.1 % (1.7-12.7); Neutrophils % 72.7 % (38.7-73.9); Platelet Count 698 T/CUMM (130-400); Red Blood Count 3.92 MC/CUMM (3.8-5.5); Red Cell Distribution Width 15.2 % (9.3-17.3); White Blood Count 14.4 T/CUMM (4-12)
[2019-10-13 04:28] LABS: Alanine Aminotransferase 22 U/L (16-61); Albumin 3.2 G/DL (3.4-5.0); Alkaline Phosphatase 168 U/L (45-117); Amylase 99 U/L (25-115); Aspartate Amino Transferase 18 U/L (0-37); Bilirubin,Total < 0.39 MG/DL (0.2-1.0); Blood Urea Nitrogen 5 MG/DL (7-18); Calcium 9.1 MG/DL (8.5-10.1); Estimated Glom Filtration Rate 142 ML/MIN; Glucose 107 MG/DL (74-106); Total Protein 8.3 G/DL (6.4-8.3)
[2019-10-13] MEDS ORDERED: PIPERACILLIN/TAZOBACTAM 3,375 MG in SODIUM CHLORIDE 0.9% 100 ML IV STA (04:45)
[2019-10-13] MEDS ORDERED: HYDROmorphone 2 MG/1 ML VIAL IV STA (06:12)
[2019-10-13] MEDS ORDERED: ACETAMINOPHEN 325 MG TABLET PO PRN (06:14)
[2019-10-13] MEDS ORDERED: LACTATED RINGERS 1,000 ML IV SCH (06:30)
[2019-10-13] MEDS ORDERED: MAGNESIUM SULF RIDER 2 GM in PREMIX 1 EACH IV ONE (07:50)
[2019-10-13] MEDS: PIPERACILLIN/TAZOBACTAM 3,375 MG in SODIUM CHLORIDE 0.9% 100 ML IV SCH ×3 (08:51→21:33)
[2019-10-13] MEDS: DEXTROSE 5% LACTATED RINGERS 1,000 ML IV SCH ×2 (09:00→17:00)
[2019-10-13] MEDS: HYDROmorphone 2 MG/1 ML VIAL IV PRN ×4 (10:00→21:36)
[2019-10-13 14:13] LABS: Apearance,Urine CLEAR (Clear); Bilirubin,Urine Negative (Negative); Blood, Urine Negative (Negative); Glucose,Urine (UA) Negative (Negative); Ketones,Urine Negative (Negative); Nitrite,Urine Negative (Negative); Protein,Urine Negative; RBC,Urine 1 /HPF (0-4); Urine Color Yellow (Yellow); Urine Specific Gravity 1.028 (1.001-1.035); Urine Urobilinogen < 2.0 EU/DL (0.2-1.0); WBC,Urine 1 /HPF (0-6)
[2019-10-13] MEDS: ENOXAPARIN 40 MG/0.4 ML SYRINGE SUBCUT SCH (21:33)
[2019-10-14] MEDS: DEXTROSE 5% LACTATED RINGERS 1,000 ML IV SCH ×3 (02:09→17:00)
[2019-10-14] MEDS: HYDROmorphone 2 MG/1 ML VIAL IV PRN ×6 (02:11→21:52)
[2019-10-14] MEDS: PIPERACILLIN/TAZOBACTAM 3,375 MG in SODIUM CHLORIDE 0.9% 100 ML IV SCH ×3 (05:49→21:31)
[2019-10-14 06:16] LABS: Basophils # 0.1 10*3/uL (0.0-0.2); Basophils % 0.9 % (0.0-0.8); Eosinophils # 0.6 10*3/uL (0.0-0.87); Eosinophils % 9.4 % (0.00-10.9); Hematocrit 31.5 VOL% (42.0-52.0); Hemoglobin 9.4 GM/DL (14.0-18.0); Immature Granulocytes % 0.5 %; Immature Granulocytes Absolute 0.03 #; Lymphocytes # 1.6 10*3/uL (1.4-4.0); Lymphocytes % 24.7 % (21.2-54.2); Mean Corpuscular HGB Conc 29.8 GM/DL (32-36); Mean Platelet Volume 8.7 FL (9.6-12.0); Monocytes % 7.9 % (1.7-12.7); Neutrophils % 56.6 % (38.7-73.9); Platelet Count 522 T/CUMM (130-400); Red Blood Count 3.58 MC/CUMM (3.8-5.5); Red Cell Distribution Width 15.3 % (9.3-17.3); White Blood Count 6.6 T/CUMM (4-12)
[2019-10-14 06:34] LABS: Alanine Aminotransferase 16 U/L (16-61); Albumin 2.6 G/DL (3.4-5.0); Alkaline Phosphatase 120 U/L (45-117); Aspartate Amino Transferase 9 U/L (0-37); Bilirubin,Total < 0.39 MG/DL (0.2-1.0); Blood Urea Nitrogen 4 MG/DL (7-18); Calcium 8.7 MG/DL (8.5-10.1); Estimated Glom Filtration Rate 134 ML/MIN; Glucose 97 MG/DL (74-106); Osmolality,Calculated 279.1 MOS/KG (273-304); Total Protein 6.7 G/DL (6.4-8.3)
[2019-10-14] MEDS: ENOXAPARIN 40 MG/0.4 ML SYRINGE SUBCUT SCH (21:31)
[2019-10-15] MEDS: HYDROmorphone 2 MG/1 ML VIAL IV PRN ×3 (02:06→10:18)
[2019-10-15] MEDS: DEXTROSE 5% LACTATED RINGERS 1,000 ML IV SCH (02:08)
[2019-10-15] MEDS: PIPERACILLIN/TAZOBACTAM 3,375 MG in SODIUM CHLORIDE 0.9% 100 ML IV SCH (06:08)
[2019-10-15 11:20] VITALS: BP 125/79
== END 2019-10-15 12:45 | disposition home or self-care (01) | DRG 392 ==
LOC: N.ED 01:34 → N.EDINP 06:14 → N.3E 06:51
PROVIDERS: ADMIT Surgery; ATTEND Surgery